=== PATIENT | female | born 1985 | race Caucasian/White ===

== ENCOUNTER 2022-10-31 20:38 | Emergency (ER) | payer BC ==
[2022-10-31] MEDS ORDERED: Lidocaine 1% 10 ML MDV INJECT ONE (21:29)
== END 2022-10-31 22:35 | disposition home or self-care (01) ==
LOC: JD.ED 20:38
DX: S61.011A Laceration without foreign body of right thumb without damage to nail, initial encounter (principal); Z88.2 Allergy status to sulfonamides; Z91.040 Latex allergy status; Z88.1 Allergy status to other antibiotic agents; W26.0XXA Contact with knife, initial encounter
CPT/HCPCS: 12001; 99282; J3490